=== PATIENT | male | born 1995 | race Two or more races ===

== ENCOUNTER 2017-06-27 09:46 | Emergency (ER) | payer SELFPAY ==
[2017-06-27] MEDS ORDERED: TDAP ADULT 0.5 ML INJ (BOOSTRIX) IM ONE (10:10)
--- NOTE | 2017-06-27 10:16 | EDPHY ---
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 Just prior to arrival he was working with a pick ax, when he accidentally smashed his right finger between the pick ax and a rock. Significantly painful. He reports a "blood blister" that he has popped with his finger. Moderately painful. No numbness or tingling. No difficulty bending or straightening the finger. He also has some mild pain in the right wrist. Pain is worse with palpation and movement. It does not radiate. No pain in the mid portion of the hand. No pain in the right elbow. He is not certain when his last tetanus shot was administered, and he is not sure if he was fully vaccinated growing up as a child school. Requesting tetanus booster. No other associated complaints or modifying factors. TIME OF INJURY: Less than 1 hour prior to arrival TETANUS STATUS: Questionable MEDICAL/SURGICAL/SOCIAL HISTORY: Denies any medical, surgical history. Nonsmoker. 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 Symmetric radial pulses 2+. Brisk cap refill Neurological: A&O, sensory symmetric, Good strength of the interossei. No wrist drop Skin: Warm and dry, no rash. Difficult to determine if there is a laceration due to dried blood on the finger. Extremities: Tenderness of the right ring finger and minimal tenderness of the right wrist. There is no snuffbox tenderness on the right wrist. No tenderness of the remaining phalanges or metatarsals. Range of motion is fully intact without deficit. Neurovascular intact distal to the injury. DIFFERENTIAL DIAGNOSES: Including but not limited to crush injury, subungual hematoma, laceration, fracture, sprain, strain MDM: 10:14 a.m. Crush injury to right ring finger. There does appear to be a area of hematoma and possibly laceration. Difficult to tell due to the dried blood. I have administered a digital block. We will proceed with irrigation for reinspection of the finger. I have ordered Tdap booster. I have ordered x-ray of the finger and wrist. 10:55 a.m. Patient re-evaluated. The wound has now been cleaned and irrigated. There is excellent view of the finger. There is no subungual hematoma. There is a small area of tissue avulsion on the dorsum of the finger over the distal phalanx. There is no repairable laceration. There is a small area of hematoma on the proximal side of the finger at the distal phalanx. This was originally a closed hematoma that the patient open himself with a knife. I will thus treat him prophylactically with Keflex to prevent infection. No fracture on the x-ray of the finger or of the wrist as read by the radiologist. Discharged with weight-bearing as tolerated instructions. Wound care instructions. Follow up with established worker's compensation [facility]. ED precautions. Patient is comfortable this plan and discharged home stable condition. PROCEDURE: Digital Block Indication: Crush injury Consent: Verbal Location: Right ring finger. Anesthesia: Lidocaine 1% plain, 0.25% Marcaine plain, 5mL Description: Base of the finger was prepped. The above was infused without difficulty. Tolerated well. Good anesthesia. Complications: None ED Precautions: Worsening pain. Erythema, edema, cyanosis, pallor, paresthesia or anesthesia. - Diagnostics Imaging Results: Imaging Impressions Finger X-Ray 06/27/17 10:10 Impression: No fracture. Wrist X-Ray 06/27/17 10:10 Impression: Normal. - History Smoking Status: Never smoked - Objective Vital Signs: Initial Vital Signs Temperature (C) 98.6 F 06/27/17 09:50 Heart Rate 61 06/27/17 09:50 Respiratory Rate 18 06/27/17 09:50 Blood Pressure 92/56 L 06/27/17 09:50 O2 Sat (%) 97 06/27/17 09:50 O2 Delivery Mode Room Air Allergies/Adverse Reactions: No Known Allergies Allergy (Unverified 06/27/17 09:53) Home Medications: Medication Instructions Recorded Cephalexin [Keflex (*)] 500 mg PO TID #30 cap 06/27/17 Medications Given: Discontinued Medications Diphtheria/Tetanus/Acell Pertussis (Boostrix) 0.5 ml IM .ONCE ONE Stop: 06/27/17 10:11 Last Admin: 06/27/17 10:29 Dose: 0.5 ml Departure - Departure Disposition: Home, Routine, Self-Care Clinical Impression: Crushing injury of right ring finger, initial encounter Traumatic hematoma of finger Qualifiers: Encounter type: initial encounter Qualified Code(s): S60.00XA - Contusion of unspecified finger without damage to nail, initial encounter Condition: Good Instructions: Crush Injury (ED) Referrals: Desmond Xiao MD [Medical Doctor] - As per Instructions Stand Alone Forms: Work Comp Follow Up Prescriptions: Cephalexin [Keflex (*)] 500 mg PO TID #30 cap
[2017-06-27 11:10] VITALS: BP 100/60; PULSE 68; RESP 14; TEMP 97.2; O2SAT 98
== END 2017-06-27 11:10 | disposition home or self-care (01) ==
PROC: 3E0T3BZ Introduction of Anesthetic Agent into Peripheral Nerves and Plexi, Percutaneous Approach (ICD-10-PCS; principal; 2017-06-27)
DX: S67.194A Crushing injury of right ring finger, initial encounter (principal); S60.041A Contusion of right ring finger without damage to nail, initial encounter; Z23 Encounter for immunization; W27.0XXA Contact with workbench tool, initial encounter; Y99.0 Civilian activity done for income or pay; Y93.89 Activity, other specified